=== PATIENT | female | born 1965 | race Caucasian/White ===

== ENCOUNTER → 2021-02-28 | Outpatient (CLI) | payer BC ==
[~2021-02-28] MED LIST: ASCO100018 PO; ASPI81TA45 PO; BACI1CAP PO; CHOL10003 PO; ELDE1CAP PO; FLUT9.9S NAS; GLUT360P3 PO; KETO10DR5 EACHEYE; LATA7.5D EACHEYE; LEVO50TA5 PO; LEVO5TAB29 PO; MAGN100T3 PO; MULT-90 PO; MULT1TAB76 PO; PROP10DR3 EACHEYE; SODI30SP NAS; TRANSFER FACTOR PO; TURM538C PO; VALA500T4 PO; VITA1TAB19 PO; VITA80004 PO; ZINC50TA44 PO; [UNRECOGNIZED DRUG - OTHER] PO; [UNRECOGNIZED DRUG - OTHER] PO; [UNRECOGNIZED DRUG - OTHER] PO
== END | disposition home or self-care (01) ==
LOC: STAR 12:22
PROVIDERS: ATTEND Otolaryngology
DX: Z20.822 Contact with and (suspected) exposure to COVID-19 (principal); J34.2 Deviated nasal septum; J32.3 Chronic sphenoidal sinusitis; J01.01 Acute recurrent maxillary sinusitis
CPT/HCPCS: U0003; U0005

== ENCOUNTER 2021-03-06 10:48 | Day surgery (SDC) | payer BC ==
[~2021-03-06] VITALS: Ht 162.6 cm; Wt 86.8 kg
[~2021-03-06 10:48] MED LIST changes: +BACITRACIN 50,000 UNIT ONE; +BACITRACIN OINT 500U/GM, 15 GM ONE; +EPINEPHRINE 1 MG/ML, 1ML ONE; +EPINEPHRINE TOPICAL SOLN 1 MG/ML, 30ML ONE; +FLUORESCEIN SODIUM 500 MG/5 ML ONE; +LIDOCAINE/PF 1%, 30ML ONE; +OXYMETAZOLINE NASAL SPRAY 0.05%,30ML ONE
[2021-03-06] MEDS ORDERED: CHLORHEXIDINE 15 ML UDC PO ONE (11:00)
[2021-03-06] MEDS ORDERED: LACTATED RINGERS 1,000 ML IV SCH (11:00)
[2021-03-06 11:19] VITALS: BP 123/86
[2021-03-06] MEDS ORDERED: MIDAZOLAM 1 MG/ML, 2ML ONE (11:49)
[2021-03-06] MEDS ORDERED: FENTANYL PF 250 MCG/5ML ONE (11:49)
[2021-03-06] MEDS ORDERED: FENTANYL PF 100 MCG/2ML IV PRN (12:00)
[2021-03-06] MEDS ORDERED: METOCLOPRAMIDE 5 MG/ML, 2ML IVPush PRN (12:00)
[2021-03-06] MEDS ORDERED: EPHEDRINE 50 MG/ML, 1ML IVPush PRN (12:00)
[2021-03-06] MEDS ORDERED: DIPHENHYDRAMINE 50 MG/ML, 1ML IVPush PRN (12:00)
[2021-03-06] MEDS ORDERED: hydrALAzine 20 MG/ML, 1ML IV PRN (12:00)
[2021-03-06] MEDS ORDERED: DIAZEPAM 5 MG/ML, 2ML IVPush PRN (12:00)
[2021-03-06] MEDS ORDERED: PROMETHAZINE 25 MG/ML, 1ML IVPush PRN (12:00)
[2021-03-06] MEDS ORDERED: OXYcodone 5 MG/5 ML ORAL.SOL UDC PO PRN (12:00)
[2021-03-06] MEDS ORDERED: HALOPERIDOL 5 MG/ML IV PRN (12:00)
[2021-03-06] MEDS ORDERED: ACETAMINOPHEN 325 MG TABLET PO PRN (12:00)
[2021-03-06] MEDS ORDERED: MEPERIDINE/PF 25MG/0.5ML IVPush PRN (12:00)
[2021-03-06] MEDS ORDERED: ONDANSETRON 2MG/ML, 2ML IVPush PRN (12:00)
[2021-03-06] MEDS ORDERED: METOPROLOL 1 MG/ML, 5ML IV PRN (12:00)
[2021-03-06] MEDS ORDERED: LABETALOL 5MG/ML, 20ML IV PRN (12:00)
[2021-03-06] MEDS ORDERED: EPHEDRINE 50 MG/ML, 1ML ONE (12:45)
[2021-03-06] MEDS ORDERED: PROPOFOL 10 MG/ML, 50ML ONE (12:45)
[2021-03-06] MEDS ORDERED: PHENYLEPHRINE 10 MG/ML ONE (12:45)
[2021-03-06] MEDS ORDERED: ROCURONIUM 10 MG/ML,10ML ONE (12:45)
[2021-03-06] MEDS ORDERED: PROPOFOL 10 MG/ML, 20ML ONE (12:45)
[2021-03-06] MEDS ORDERED: DEXAMETHASONE 4 MG/ML, 1ML ONE (12:45)
[2021-03-06] MEDS ORDERED: GLYCOPYRROLATE 0.2MG/1ML, 5ML ONE (12:45)
[2021-03-06] MEDS ORDERED: ONDANSETRON 2MG/ML, 2ML ONE (12:45)
[2021-03-06] MEDS ORDERED: CEFAZOLIN 1,000 MG ONE (12:45)
[2021-03-06] MEDS ORDERED: FENTANYL PF 100 MCG/2ML ONE (14:48)
[2021-03-06] MEDS ORDERED: LABETALOL 5MG/ML, 20ML ONE (14:49)
[2021-03-06] MEDS ORDERED: OXYcodone 5 MG/5 ML ORAL.SOL UDC ONE (14:49)
== END 2021-03-06 16:33 | disposition home or self-care (01) ==
LOC: OUT 10:48
PROVIDERS: ATTEND Otolaryngology
DX: J01.01 Acute recurrent maxillary sinusitis (principal); J32.3 Chronic sphenoidal sinusitis; J34.2 Deviated nasal septum; J34.1 Cyst and mucocele of nose and nasal sinus; J30.89 Other allergic rhinitis; E03.9 Hypothyroidism, unspecified; Z88.5 Allergy status to narcotic agent; Z88.8 Allergy status to other drugs, medicaments and biological substances
CPT/HCPCS: 31253; 31256; 31259; 31267; 87070; 87075; 87077; 87102; 87186; 87205; 88304; 88305; J0171; J2250; J3010; J7120; J0690; J1100; J2405; J2704; J2370

== ENCOUNTER 2021-03-13 09:06 | Day surgery (SDC) | payer BC ==
[~2021-03-13] VITALS: Ht 162.6 cm; Wt 86.4 kg
[~2021-03-13 09:06] MED LIST changes: -BACITRACIN 50,000 UNIT ONE; -BACITRACIN OINT 500U/GM, 15 GM ONE; -EPINEPHRINE 1 MG/ML, 1ML ONE; -EPINEPHRINE TOPICAL SOLN 1 MG/ML, 30ML ONE; -FLUORESCEIN SODIUM 500 MG/5 ML ONE; -LIDOCAINE/PF 1%, 30ML ONE; -OXYMETAZOLINE NASAL SPRAY 0.05%,30ML ONE
[2021-03-13 09:56] VITALS: BP 122/85
[2021-03-13] MEDS ORDERED: OXYMETAZOLINE NASAL SPRAY 0.05%,30ML ONE (10:48)
== END 2021-03-13 10:50 | disposition home or self-care (01) ==
LOC: OUT 09:06
PROVIDERS: ATTEND Otolaryngology
DX: J01.01 Acute recurrent maxillary sinusitis (principal); J32.3 Chronic sphenoidal sinusitis; Z20.822 Contact with and (suspected) exposure to COVID-19
CPT/HCPCS: 87635